=== PATIENT | male | born 1965 | race Caucasian/White ===

== ENCOUNTER 2018-01-24 05:01 | Inpatient (IN) ==
[2018-01-24] MEDS ORDERED: Sodium Chlor 0.9% Inj 40 ML, Bupivacaine Liposo PF 1.3% Inj 20 ML, Bupivacaine/Epi PF 0... P-ARTICULR SCH ×3 (05:27)
[2018-01-24] MEDS ORDERED: Celecoxib 200 MG Capsule PO ONE (05:27)
[2018-01-24] MEDS ORDERED: Gabapentin 300 MG Capsule PO ONE (05:27)
[2018-01-24] MEDS ORDERED: Dexamethasone Inj 20 MG/5 ML Vial IV.PUSH ONE (05:27)
[2018-01-24] MEDS ORDERED: Chlorhexidine Gluconate 2% 1 Pack (2 Cloths) TOPICAL ONE (05:30)
[2018-01-24] MEDS ORDERED: Metoprolol Tartrate 25 MG Tablet PO ONE (05:30)
[2018-01-24] MEDS ORDERED: Chlorhexidine 4% Topical 120 APPLIC/120 ML Bottle TOPICAL SCH (05:30)
[2018-01-24] MEDS ORDERED: Sodium Chlor 0.9% Inj 500 ML IV.CONT ONE (05:30)
[2018-01-24] MEDS ORDERED: Famotidine PF Inj 20 MG/2 ML Vial IV.PUSH SCH (05:45)
[2018-01-24] MEDS ORDERED: SODIUM CHLOR 0.9% IV.SIG SCH (06:00)
[2018-01-24] MEDS ORDERED: TRANEXAMIC ACID IV.SIG SCH (06:00)
[2018-01-24] MEDS ORDERED: ceFAZolin 1 GM Premix Inj 2 GM/100 ML FROZ.PIGGY IV.SIG ONE (06:37)
[2018-01-24] MEDS: Vancomycin Inj 1,000 MG in Sodium Chlor 0.9% Inj 250 ML IV.SIG SCH ×3 (06:45→18:54)
[2018-01-24] MEDS ORDERED: Post-op Orders (for Pharmacy) OTHER STA (08:38)
[2018-01-24] MEDS ORDERED: Promethazine 25 MG Supp RECTAL PRN (08:38)
[2018-01-24] MEDS ORDERED: Bisacodyl 10 MG Supp RECTAL PRN (08:38)
[2018-01-24] MEDS ORDERED: Morphine Inj 4 MG/ML Vial IV.PUSH PRN (08:38)
--- NOTE | 2018-01-24 08:45 | P.OP ---
Date of procedure: 01/24/18 Procedure: Left total hip arthroplasty by anterior approach Anesthesia: CHRIS Surgeon: Jeremy Urbano MD Poacher Wringer Operator: Thierno Nunez PA-C The surgical procedure was assisted by my physician patent legal assistant. My P.A. presence was necessary throughout this case for the manipulation and positioning of the surgical extremity. My P.A. was assisting me throughout the duration of this procedure. The skill set of a physician patent legal assistant was medically necessary to complete this procedure. During the surgical case the surgical orderly was working at the back table and the physician patent legal assistant was directly assisting me. Operation and Findings: PLAN OF ACTIVITY Weight bear as tolerated. IMPLANTS USED DePuy Corail size [14] collared stem with a size [54] Groveton Gription cup, [54 /36] Altrx poly liner, and a [36 +1.5] Biolox ceramic head. DETAILS OF PROCEDURE: This patient has a long history of hip pain. Patient was found to have severe osteoarthritis. The patient had radiographic evidence of joint space narrowing with [id number] arthritis and osteophytes around the acetabulum as well as the femoral head. There was also some cystic changes. The patient failed conservative treatment with pain medications, anti-inflammatories, physical therapy, assistive devices including a cane, as well as therapeutic injection of the hip. Patient's hip arthritis was limiting his ability to ambulate and perform activities of daily living. The patient wished to proceed with surgery and informed consent was obtained. Operative site was marked. I discussed both posterior approach and anterior approach with the patient and decision was made for anterior approach. Patient was brought to OR and placed on OR table. IV sedation and general anesthesia was administered by anesthesiologist. Patient positioned on a Bri table and was given IV antibiotics. Time-out procedure was performed. The hip and thigh were prepped with alcohol followed by Hibiclens. The thigh was draped in the usual sterile fashion. Clean Air Suite was used for this procedure. The procedure began with a 5-inch incision over the anterolateral thigh. Subcutaneous tissue was dissected with Bovie. The fascia over the tensa fasciae latae was incised. Care was taken to avoid injury to the lateral femoral cutaneous nerve. The tensor muscle was retracted laterally. Sartorius was retracted medially. Retractors were now placed. The reflected head of the rectus is now elevated. A capsulotomy was performed over the anterior head capsule. Sutures were placed to help retract the capsule. At this point the femoral head and neck were identified. With soft tissue protected, oscillating saw was used to make a cut through the femoral neck, the femoral head was now removed. At this point attention was turned to preparation of the acetabulum. The labrum was excised. The acetabulum was sequentially reamed up to size [54]. A Groveton cup was now placed. Fluoroscopy was used to aid in identification of appropriate version. Cup was fully impacted and found to have excellent fit. Hole eliminator was now placed. The liner was now impacted into the cup. At this point the hip was externally rotated. A hook was placed around the proximal femur. The capsule was released off the lateral and medial femur. The hip was now extended and adducted. Retractors were placed around the proximal femur to allow for exposure. A box osteotome was used to remove the lateral cortex of the femoral neck. A broach was used to help lateralize the prosthesis. Canal finder was used to create a path down the canal. Next, the canal was sequentially broached up to size [14]. This was found to be an excellent fit. Calcar planer was placed. A standard head was placed, and the hip was reduced. The hip was found to have excellent stability with good range of motion. The leg lengths were measured under fluoroscopy and found to be equal compared to preoperatively. Trial broach was removed. The Corail stem was opened. Stem was fully impacted into the proximal femur in appropriate version. The femoral head was placed. The hip was again reduced. Fluoroscopy confirmed excellent alignment of prosthesis. The wound was thoroughly irrigated and capsule was closed with #1 Vicryl. The fascia over the tensor fasciae muscle was closed with #1 Vicryl, subcutaneous tissue was closed with 3-0 Vicryl and the skin was closed with manas and Dermabond skin closure. The capsule layers, muscle, and subcutaneous tissue were injected with a mixture of saline and bupivicaine. Dressings were applied. The patient was transferred to Recovery Room in stable condition.
[2018-01-24] MEDS ORDERED: ceFAZolin Inj 2,000 MG in Sodium Chlor 0.9% Inj 80 ML IV.SIG SCH (09:00)
[2018-01-24] MEDS ORDERED: Vancomycin Inj 1 GM/200 ML PIGGYBACK IV.SIG SCH (09:00)
[2018-01-24] MEDS ORDERED: *morphine SULFATE 4 MG/ML PERIprocedure ONLY ONE (09:08)
[2018-01-24] MEDS ORDERED: fentaNYL Citrate Inj 100 MCG/2 ML Ampul ONE (09:12)
[2018-01-24] MEDS ORDERED: *HYDROmorphone PF Inj 1 MG/ML Ampul PERIprocedural Use ONLY ONE (09:20)
[2018-01-24] MEDS ORDERED: Tranexamic Acid Inj 1,000 MG in Sodium Chlor 0.9% Inj 100 ML IV.SIG SCH (10:00)
[2018-01-24] MEDS: Methocarbamol 500 MG Tablet PO SCH ×3 (12:11→18:17)
[2018-01-24] MEDS: Calcium/Vitamin D 250/125 MG Tablet PO SCH ×3 (12:12→18:17)
[2018-01-24] MEDS: Gabapentin 300 MG Capsule PO SCH ×3 (12:12→18:17)
[2018-01-24] MEDS: Senna/Docusate Sodium 8.6/50 MG Tablet PO SCH ×2 (12:16→20:22)
[2018-01-24] MEDS: Pantoprazole Sodium 20 MG DR Tablet PO SCH (12:16)
[2018-01-24] MEDS: hydroCHLOROthiazide 25 MG Tablet PO SCH (12:16)
--- NOTE | 2018-01-24 14:44 | XR ---
EXAM DATE: 01/24/2018 2:34 PM EST AGE/SEX: 52 years / Male INDICATIONS: Left total hip arthroplasty. CLINICAL DATA: This is the patient's initial encounter. Patient reports that signs and symptoms have been present for 1 day and indicates a pain score of Nonresponsive. MEDICAL/SURGICAL HISTORY: Non-responsive. Non-responsive. COMPARISON: No prior exams available for comparison. FINDINGS: 2 images from the OR have been submitted. There is a bipolar hip prosthesis in good position. CONCLUSION: Successful placement of a bipolar hip prosthesis. Electronically signed by: Kiko Moreno MD 01/24/2018 2:42 PM EST
[2018-01-24] MEDS: ceFAZolin 2 GM Premix Inj 2 GM/50 ML PIGGYBACK IV.SIG SCH ×2 (16:22→23:24)
[2018-01-24] MEDS: Celecoxib 200 MG Capsule PO SCH (20:22)
[2018-01-25 04:57] LABS: Hematocrit 38.3 % (39.0-51.0); Hemoglobin 12.9 gm/dL (13.0-17.0)
[2018-01-25] MEDS: Vancomycin Inj 1,000 MG in Sodium Chlor 0.9% Inj 250 ML IV.SIG SCH (05:42)
--- NOTE | 2018-01-25 06:26 | P.PNOP ---
Subjective Interval history: POD 1 s/p left anterior RAUL doing well. reports nerve type pain in left foot. otherwise doing ok. Physical Exam Vital signs: Vital Signs 01/24/18 06:27 01/24/18 09:03 01/24/18 09:15 Temperature 98.5 F 98.5 F Pulse Rate 20 L 100 H 96 H Respiratory Rate 20 16 16 Blood Pressure 155/95 H 120/64 136/63 Pulse Oximetry 95 94 L 93 L 01/24/18 09:30 01/24/18 09:45 01/24/18 09:57 Temperature Pulse Rate 97 H 100 H Respiratory Rate 16 19 Blood Pressure 137/60 139/65 Pulse Oximetry 97 96 97 01/24/18 10:00 01/24/18 10:15 01/24/18 10:30 Temperature Pulse Rate 100 H 101 H 99 H Respiratory Rate 19 19 19 Blood Pressure 138/65 144/68 H 145/72 H Pulse Oximetry 95 95 95 01/24/18 10:54 01/24/18 11:00 01/24/18 11:30 Temperature 98.0 F 97.5 F L Pulse Rate 107 H 111 H Respiratory Rate 19 18 Blood Pressure 144/90 H 167/82 H Pulse Oximetry 96 97 98 01/24/18 12:12 01/24/18 16:00 01/24/18 19:00 Temperature 97.4 F L 98.4 F Pulse Rate 118 H 113 H Respiratory Rate 14 18 20 Blood Pressure 143/68 H 147/67 H Pulse Oximetry 96 92 L 01/24/18 23:53 01/25/18 05:20 Temperature 97.5 F L 97.6 F Pulse Rate 107 H 105 H Respiratory Rate 17 16 Blood Pressure 144/67 H 132/79 Pulse Oximetry 94 L 93 L Intake & Output 01/24/18 01/24/18 01/25/18 06:59 18:59 06:59 Intake Total 1000 / 1000 2450 / 2450 Output Total 500 / 500 1800 / 1800 Balance 500 / 500 650 / 650 Weight 120.5 kg 120.5 kg 126.5 kg Intake: IV 400 / 400 1650 / 1650 LR 1000 mL Inj 1,000 ML @ 80 1000 / 1000 mls/hr IV.CONT .[id number] [facility] Rx# :[id number] Ofirmev Inj 1,000 mg In 100 ml 100 / 100 100 / 100 @ 400 mls/hr IV.SIG Q12H [facility] Rx #:[id number] Vancomycin Inj 1,000 MG In NS 250 / 250 500 / 500 Inj 250 ML @ 250 mls/hr IV.SIG Q12H [facility] Rx#:[id number] Ancef 2 GM Premix Inj 2 gm In 50 / 50 50 / 50 50 ml @ 100 mls/hr IV.SIG Q8H [facility] Rx#:[id number] Oral 800 / 800 Anesthesia Amount 600 / 600 Output: Urine 300 / 300 1800 / 1800 Stool 0 / 0 Estimated Blood Loss 200 / 200 Other: # Voids 2 Date of Last Bowel Movement 01/23/18 01/23/18 Weight On Admission 120.5 kg Narrative: LLE: dressing clean and dry. intact. NVI distally Results - Labs CBC & Chem 7: 01/25/18 04:11 Laboratory Results - last 24 hr 01/24/18 01/25/18 06:15 04:11 Hgb 12.9 L Hct 38.3 L Blood Type A Positive Blood Type Recheck Required Antibody Screen Negative - Imaging Impressions Hip X-Ray 01/24/18 00:00 CONCLUSION: Successful placement of a bipolar hip prosthesis. Assessment and Plan - Assessment and Plan 1) Left Anterior RAUL -POD 1 -WBAT -maintain surgical dressing x 6 days, then daily with primapore. maintain surgical mesh -gabapentin 300mg TID -naproxen 500mg BID x 1 week -DVT prophylaxis with aspirin 81mg on discharge. lovenox inpatient -plan for home with [facility] tomorrow -patient already given pain medication Rx [facility] -f/u with [facility] or [facility] in 2 weeks
--- NOTE | 2018-01-25 06:41 | P.DCO ---
- Physical Therapy Physical Therapy: Gait training Hip: Total hip, Protocol: Left, Progress to weight bearing Left Lower Extremity Weight Bearing: Weight bearing as tolerated - Nursing Dressing changes: Do not change dressing (x 6 days), Daily dressing change (to begin on POD 7 with primapore .maintain surgical mesh on incision) - Certification Need for Home Health services: I have seen patient Israel Garber on 01/25/18. My clinical findings support the need for the requested home health care services because: Need for Home Health Services: Limited mobility due to disease progression Homebound Certification: I certify that my clinical findings support that this patient is homebound because: Homebound Certification: Post-op weakness
[2018-01-25] MEDS: ceFAZolin 2 GM Premix Inj 2 GM/50 ML PIGGYBACK IV.SIG SCH (06:45)
[2018-01-25] MEDS: hydroCHLOROthiazide 25 MG Tablet PO SCH (08:55)
[2018-01-25] MEDS: Senna/Docusate Sodium 8.6/50 MG Tablet PO SCH ×2 (08:55→20:08)
[2018-01-25] MEDS: Gabapentin 300 MG Capsule PO SCH ×3 (08:55→17:32)
[2018-01-25] MEDS: Pantoprazole Sodium 20 MG DR Tablet PO SCH (08:55)
[2018-01-25] MEDS: Calcium/Vitamin D 250/125 MG Tablet PO SCH ×3 (08:56→17:32)
[2018-01-25] MEDS: Methocarbamol 500 MG Tablet PO SCH ×3 (08:56→17:32)
[2018-01-25] MEDS: Celecoxib 200 MG Capsule PO SCH ×3 (08:56→20:08)
[2018-01-25 20:37] VITALS: RESP 18
--- NOTE | 2018-01-26 06:24 | P.PNOP ---
Subjective Interval history: POD 2 s/p left anterior RAUL doing well. out of bed on own yesterdya. pain controlled. no complaints. states he feels ready to go home Physical Exam Vital signs: Vital Signs 01/25/18 08:00 01/25/18 09:55 01/25/18 11:36 Temperature 98.5 F 98.4 F Pulse Rate 109 H 126 H Respiratory Rate 19 18 19 Blood Pressure 149/91 H 106/62 Pulse Oximetry 93 L 96 01/25/18 19:42 01/25/18 23:26 Temperature 97.8 F 97.9 F Pulse Rate 107 H 105 H Respiratory Rate 18 18 Blood Pressure 111/63 118/67 Pulse Oximetry 98 95 Intake & Output 01/25/18 01/25/18 01/26/18 06:59 18:59 06:59 Intake Total 2700 / 2700 150 / 150 580 / 580 Output Total 1800 / 1800 500 / 500 Balance 900 / 900 150 / 150 80 / 80 Weight 126.5 kg 126.5 kg Intake: IV 1900 / 1900 150 / 150 100 / 100 LR 1000 mL Inj 1,000 ML @ 80 1000 / 1000 mls/hr IV.CONT .[id number] [facility] Rx# :[id number] Ofirmev Inj 1,000 mg In 100 ml 100 / 100 100 / 100 100 / 100 @ 400 mls/hr IV.SIG Q12H [facility] Rx #:[id number] Vancomycin Inj 1,000 MG In NS 750 / 750 Inj 250 ML @ 250 mls/hr IV.SIG Q12H [facility] Rx#:[id number] Ancef 2 GM Premix Inj 2 gm In 50 / 50 50 / 50 50 ml @ 100 mls/hr IV.SIG Q8H [facility] Rx#:[id number] Oral 800 / 800 480 / 480 Output: Urine 1800 / 1800 500 / 500 Stool 0 / 0 Other: # Voids 1 Date of Last Bowel Movement 01/23/18 01/23/18 # Bowel Movements 0 Narrative: LLE: dressing clean and dry. intact. NVI Results - Labs CBC & Chem 7: 01/25/18 04:11 Assessment and Plan - Problem List (1) Status post total hip replacement, left Code(s): Z96.642 - Presence of left artificial hip joint Status: Acute - Assessment and Plan 1) Left Anterior RAUL -POD 2 -WBAT -maintain surgical dressing x 6 days, then daily with primapore. maintain surgical mesh -gabapentin 300mg TID -naproxen 500mg BID x 1 week -DVT prophylaxis with aspirin 81mg on discharge. lovenox inpatient -plan for home with [facility] today -patient already given pain medication Rx [facility] -f[facility]u with [facility] in 2 weeks
--- NOTE | 2018-01-26 06:45 | P.DS ---
Date of admission: 01/24/18 05:01 Primary care physician: No Primary Care Physician Attending physician on discharge: Jeremy Urbano Anticipated date of discharge: 01/26/18 Brief History from admission: Patient known to Dr. Urbano from an outpatient setting. Has been dealing with left hip pain and discomfort for many years now. Has has a history of significant low back issues. Patient was evaluated for these low back issues to determine whether or not his pain was indeed coming from his hip. Eventually after failed treatment of the hip which included anti-inflammatories , activity modification, and steroid injection, the decision was made that the pain was coming from the osteoarthritis of his left hip and the decision was made to move forward with an elective anterior left total hip arthroplasty DS: Diagnosis - Discharge Diagnosis (1) Status post total hip replacement, left Status: Acute DS: Medications - Discharge Medications Prescriptions: aspirin [Alonso Chewable Aspirin] 81 mg PO BID #60 tab naproxen [Naprosyn] 500 mg PO BID #14 tab DS: Summary Hospital Course: Patient admitted for elective left total hip arthroplasty. He tolerated it well. He was out of bed on postop day 1 and ambulating with therapy. By postop day 2, he was hemodynamically stable, pain controlled, utilizing a walker and ambulating on his own, and safe for discharge home with home health care. He will work with therapy 1 more time this morning and the plan for discharge home. He will maintain his surgical site dressing for 6 days and then begin daily dressing changes with a Primapore. He will keep it clean and dry. He will fully weight-bear. He will be on aspirin 81 mg twice daily for DVT prophylaxis. He will follow-up in outpatient setting with Dr. Urbano or his PA in 2 weeks. - Time Spent with Patient Total time spent providing and/or coordinating discharge services: Less than 30 minutes - Quality: VTE Deep Vein Thrombosis/Pulmonary Embolism Present on Admission: No Exam Vital signs: Vital Signs 01/25/18 08:00 01/25/18 09:55 01/25/18 11:36 Temperature 98.5 F 98.4 F Pulse Rate 109 H 126 H Respiratory Rate 19 18 19 Blood Pressure 149/91 H 106/62 Pulse Oximetry 93 L 96 01/25/18 19:42 01/25/18 23:26 Temperature 97.8 F 97.9 F Pulse Rate 107 H 105 H Respiratory Rate 18 18 Blood Pressure 111/63 118/67 Pulse Oximetry 98 95 Intake & Output 01/25/18 01/25/18 01/26/18 06:59 18:59 06:59 Intake Total 2700 / 2700 150 / 150 580 / 580 Output Total 1800 / 1800 500 / 500 Balance 900 / 900 150 / 150 80 / 80 Weight 126.5 kg 126.5 kg Intake: IV 1900 / 1900 150 / 150 100 / 100 LR 1000 mL Inj 1,000 ML @ 80 1000 / 1000 mls/hr IV.CONT .[id number] [facility] Rx# :[id number] Ofirmev Inj 1,000 mg In 100 ml 100 / 100 100 / 100 100 / 100 @ 400 mls/hr IV.SIG Q12H [facility] Rx #:[id number] Vancomycin Inj 1,000 MG In NS 750 / 750 Inj 250 ML @ 250 mls/hr IV.SIG Q12H [facility] Rx#:[id number] Ancef 2 GM Premix Inj 2 gm In 50 / 50 50 / 50 50 ml @ 100 mls/hr IV.SIG Q8H [facility] Rx#:[id number] Oral 800 / 800 480 / 480 Output: Urine 1800 / 1800 500 / 500 Stool 0 / 0 Other: # Voids 1 Date of Last Bowel Movement 01/23/18 01/23/18 # Bowel Movements 0 Narrative: LLE: dressing clean and dry. intact. NVI Results Procedures completed during hospitalization: Left anterior total hip arthroplasty - Impressions ITS Impressions Hip X-Ray 01/24/18 00:00 CONCLUSION: Successful placement of a bipolar hip prosthesis. Discharge Plan - Discharge Disposition Patient Disposition: W/Home Health Service - Discharge Condition Condition: Good - Discharge Order Discharge Orders: Discharge Order (Routine); Ordered 01/26/18 Ordered By: Thierno Nunez - Physicians Team Primary Care Provider: Primary Care Stevan,Stephanie Attending Provider: Jeremy Urbano Other Providers: [facility] - Rxs /Orders / Referrals /Forms Prescriptions: New aspirin [Alonso Chewable Aspirin] 81 mg Tablet,Chewable 81 mg PO BID Qty: 60 RF: 0 gabapentin [Neurontin] 300 mg Capsule 300 mg PO TID Qty: 42 RF: 0 naproxen [Naprosyn] 500 mg Tablet 500 mg PO BID Qty: 14 RF: 0 Continue acetaminophen [Tylenol Extra Strength] 500 mg Tablet 1,000 mg PO Q6H PRN (Reason: Pain) hydrochlorothiazide 12.5 mg Tablet 12.5 mg PO DAILY methocarbamol 500 mg Tablet 500 mg PO TID omeprazole 20 mg Tablet,Delayed Release (Dr/Ec) 20 mg PO DAILY Discontinued diclofenac sodium 75 mg Tablet,Delayed Release (Dr/Ec) 75 mg PO DAILY Ambulatory Orders / Order Sets / DME: Walker With Front Wheels (1 each) (Routine) Location: Determined by Patient Ordered By: Thierno Nunez Referrals: Primary Care Stephanie Calles [Primary Care Provider] - See Instructions Jeremy Urbano MD [Physician] - See Instructions (2 weeks)
[2018-01-26 09:03] VITALS: BP 111/72; PULSE 95; TEMP 97.8; O2SAT 94
[2018-01-26] MEDS: hydroCHLOROthiazide 25 MG Tablet PO SCH (09:31)
[2018-01-26] MEDS: Methocarbamol 500 MG Tablet PO SCH (09:31)
[2018-01-26] MEDS: Pantoprazole Sodium 20 MG DR Tablet PO SCH (09:32)
[2018-01-26] MEDS: Gabapentin 300 MG Capsule PO SCH (09:32)
[2018-01-26] MEDS: Celecoxib 200 MG Capsule PO SCH (09:32)
[2018-01-26] MEDS: Calcium/Vitamin D 250/125 MG Tablet PO SCH (09:32)
[2018-01-26] MEDS: Senna/Docusate Sodium 8.6/50 MG Tablet PO SCH (09:34)
== END 2018-01-26 14:15 | disposition home health service (06) ==
LOC: HSDI 05:01 → N06 11:27
PROVIDERS: ADMIT Orthopaedic Surgery Orthopaedic Trauma; ATTEND Orthopaedic Surgery Orthopaedic Trauma